=== PATIENT | female | born 1965 | race Caucasian/White ===

== ENCOUNTER 2023-03-30 06:55 | Day surgery (SDC) | payer OTHER ==
[2023-03-30] VITALS (10 sets, daily range): BP systolic 114–126; BP diastolic 74–82
[~2023-03-30] VITALS: Ht 167 cm; Wt 50.2 kg
[2023-03-30] MEDS ORDERED: ASPI325 PO (07:09)
[2023-03-30] MEDS ORDERED: HYDACE10B PO (07:09)
[2023-03-30] MEDS ORDERED: HYDR1TAB94 PO (07:10)
[2023-03-30] MEDS ORDERED: DOCU100 PO (07:14)
[2023-03-30] MEDS ORDERED: SERT100 PO (07:15)
--- NOTE | 2023-03-30 08:09 | NUR ---
Ambulatory in Day Surgery History, Chart, Medications and Allergies reviewed before start of procedure.Patient confirms NPO status and agrees with scheduled surgery. Patient States Post-Procedure ride home has been arranged.PATIENT DID NOT TAKE CHLOREHEXEDINE SHOWER AT HOME, PREP DONE HERE.
--- NOTE | 2023-03-30 10:19 | NUR ---
Patient up to Ambulate independently. Gait steady. Discharge instructions reviewed with patient. Patient verbalizes understanding. Copy given to patient to take home, [facility]. Patient States Post-Procedure ride home has been arranged. Discharged via wheelchair to private car for ride home.
== END 2023-03-30 10:19 | disposition home or self-care (01) ==
LOC: ORD 06:55 → ORSCMMR 06:55 → ORD 08:00
PROVIDERS: Surgery
PROC: B543ZZA Ultrasonography of Right Jugular Veins, Guidance (ICD-10-PCS; principal; 2023-03-30 08:00)
PROC: 0JH63WZ Insertion of Totally Implantable Vascular Access Device into Chest Subcutaneous Tissue and Fascia, Percutaneous Approach (ICD-10-PCS; principal; 2023-03-30 08:00)
PROC: 05HM33Z Insertion of Infusion Device into Right Internal Jugular Vein, Percutaneous Approach (ICD-10-PCS; principal; 2023-03-30 08:00)
DX: C56.9 Malignant neoplasm of unspecified ovary (principal); Z85.3 Personal history of malignant neoplasm of breast; F32.A Depression, unspecified; F17.210 Nicotine dependence, cigarettes, uncomplicated; Z79.82 Long term (current) use of aspirin; Z79.899 Other long term (current) drug therapy
CPT/HCPCS: 77001; C1788; J0690; J1642; J2001; J7120

== ENCOUNTER 2023-04-26 14:41 | Emergency (ER) | payer OTHER ==
[~2023-04-26] VITALS: Ht 165.1 cm; Wt 45.4 kg
[~2023-04-26 14:41] MED LIST: ASPI325 PO; DOCU100 PO; HYDACE10B PO; HYDR1TAB94 PO; SERT100 PO
[2023-04-26 15:56] LABS: Hematocrit 26.7 % (33.0-51.0); Hemoglobin 8.9 g/dL (11.5-16.0); Mean Corpuscular HGB 26.6 pg (26.0-34.0); Mean Corpuscular HGB Conc 33.3 g/dL (31.5-36.5); Mean Corpuscular Volume 80 fL (80-100); Mean Platelet Volume 10.7 fL (9.1-12.4); Platelet Count 392 K/mm3 (150-400); RDW Coefficient Variation 15.5 % (11.7-14.2); RDW Standard Deviation 44.7 fL (35.1-46.3); Red Blood Cell Count 3.34 M/mm3 (3.80-5.20); White Blood Cell Count 10.18 K/mm3 (4.00-11.30)
[2023-04-26 16:09] LABS: Albumin/Globulin Ratio 0.4 (0.8-1.8); Bilirubin, Total 0.4 mg/dL (0.1-1.0); Bun/Creatinine Ratio 51.8 (12.0-20.0); Calcium, Blood 8.9 mg/dL (8.5-10.1); Creatinine, Blood 0.48 mg/dL (0.40-1.00); Globulin, Blood 4.9 g/dL (2.2-4.0); Potassium, Blood 3.5 mmol/L (3.5-5.5); Total Protein, Blood 6.9 g/dL (6.4-8.2)
[2023-04-26] MEDS ORDERED: ZYPREXA2.5 MG PO (16:38)
[2023-04-26] MEDS ORDERED: FENTANYL1 EA10 TOP (16:38)
[2023-04-26] MEDS ORDERED: OXYC10TA19 PO (16:39)
[2023-04-26] MEDS ORDERED: ONDA4 PO (16:39)
[2023-04-26 17:00] LABS: BAND PERCENT MAN 35 % (0-8); BASOPHILS PERCENT MAN 0 % (0-2); EOSINOPHILS PERCENT MAN 0 % (0-6); LYMPHOCYTES % ATYPICAL MANUAL 2 % (0-0); LYMPHOCYTES ABSOLUTE MAN 1.22 K/mm3 (0.84-5.20); LYMPHOCYTES PERCENT MAN 10 % (21-46); MONOCYTES ABSOLUTE MAN 0.91 K/mm3 (0.16-1.47); MONOCYTES PERCENT MAN 9 % (4-13); NEUTROPHILS ABSOLUTE MAN 8.04 K/mm3 (1.96-9.15); SEG NEUTROPHILS PERCENT MAN 44 % (41-73); TOTAL CELLS COUNTED 100
[2023-04-26 21:30] VITALS: BP 102/70
== END 2023-04-26 22:23 | disposition short-term general hospital (02) ==
LOC: ER 14:41
PROVIDERS: Physician Assistant
DX: K56.609 Unspecified intestinal obstruction, unspecified as to partial versus complete obstruction (principal); K63.2 Fistula of intestine; K65.1 Peritoneal abscess; C56.9 Malignant neoplasm of unspecified ovary; E87.1 Hypo-osmolality and hyponatremia; Z79.82 Long term (current) use of aspirin; Z90.710 Acquired absence of both cervix and uterus; Z90.49 Acquired absence of other specified parts of digestive tract; Z92.3 Personal history of irradiation; Z79.899 Other long term (current) drug therapy
CPT/HCPCS: 71045; 74177; 80053; 83605; 83690; 85025; 93005; 93010; 96361; 96365; 96365-59; 96375; 99285-25; A9270; J2543; J3010; J7030; Q9967